=== PATIENT | male | born 1950 | race Native Hawaiian/Other Pacific Islander ===

== ENCOUNTER 2018-09-12 22:55 | Emergency (ER) | payer OTHER ==
[~2018-09-12] VITALS: Ht 180.3 cm; Wt 122.5 kg
[~2018-09-12 22:55] MED LIST: ALAVERT10 M2 PO; ASPIRIN 81 LOW81 MG PO; CARDIZEM60 M1 PO; CLON0.1T16 PO; DIVALPROEX250 M1 PO; DONE5TAB PO; ESCI10TA PO; LACTSYP31 PO; METO50TA27 PO; OLANZAPINE5 M1 PO; PATADAY0.2 % OP; PREP H HC1 % EX; PSYLLIUM PO; RULOX PO; TAMS0.4C PO; TEMA15CA19 PO; XARELTO10 MG PO; [UNRECOGNIZED DRUG - CODE] OPTH
[2018-09-12 23:33] LABS: PLATELET COUNT 194 K/uL (142-355)
[2018-09-12 23:44] LABS: POTASSIUM 3.9 mmol/L (3.6-5.2)
[2018-09-13 00:18] VITALS: BP 141/92; TEMP 98.3
[2018-09-13] MEDS ORDERED: BUSPIRONE10 MG PO (01:03)
[2018-09-13] MEDS ORDERED: DONE5TAB PO (01:04)
[2018-09-13] MEDS ORDERED: ELIQUIS5 MG PO (01:06)
[2018-09-13] MEDS ORDERED: ESCITALOPRAM5 MG PO (01:06)
[2018-09-13] MEDS ORDERED: FLUTICASON50 MCG/ACT NAS (01:07)
[2018-09-13] MEDS ORDERED: MEMANTINE HCL10 MG PO (01:08)
[2018-09-13] MEDS ORDERED: OLANZAPINE10 M2 PO (01:10)
[2018-09-13] MEDS ORDERED: TRAZODONE HYDR100 MG PO (01:11)
[2018-09-13] MEDS ORDERED: [UNRECOGNIZED DRUG - OTHER] PO (01:12)
[2018-09-13] MEDS ORDERED: PANTOPRAZOLE 40MG TA PO (01:12)
== END 2018-09-13 00:35 | disposition other institution (70) ==
LOC: ED 22:55
PROVIDERS: Emergency Medicine
DX: F28 Other psychotic disorder not due to a substance or known physiological condition (principal); I48.91 Unspecified atrial fibrillation; Z04.6 Encounter for general psychiatric examination, requested by authority
CPT/HCPCS: 36415; 80053; 85027; 93005; 99285

== ENCOUNTER 2019-01-25 18:33 | Emergency (ER) | payer OTHER ==
[~2019-01-25] VITALS: Ht 185.4 cm; Wt 122.5 kg
[~2019-01-25 18:33] MED LIST changes: +BUSPIRONE10 MG PO; +BUSPIRONE15 MG PO; +ELIQUIS5 MG PO; +ESCITALOPRAM5 MG PO; +FLUTICASON50 MCG/ACT NAS; +FURO40TA93 PO; +MEMANTINE HCL10 MG PO; +OLANZAPINE10 M2 PO; +PANTOPRAZOLE 40MG TA PO; +TRAZODONE HYDR100 MG PO; +[UNRECOGNIZED DRUG - OTHER] PO
[2019-01-25 18:43] VITALS: TEMP 97.3
[2019-01-25 18:58] LABS: POTASSIUM 3.9 mmol/L (3.6-5.2)
[2019-01-25 19:06] LABS: PLATELET COUNT 174 K/uL (142-355)
[2019-01-25 23:30] VITALS: BP 119/74
== END 2019-01-25 23:30 | disposition other institution (70) ==
LOC: ED 18:33
PROVIDERS: Emergency Medicine
DX: F20.89 Other schizophrenia (principal); S72.092A Other fracture of head and neck of left femur, initial encounter for closed fracture; T84.021A Dislocation of internal left hip prosthesis, initial encounter; I48.91 Unspecified atrial fibrillation; I45.81 Long QT syndrome; W18.39XA Other fall on same level, initial encounter; Y92.89 Other specified places as the place of occurrence of the external cause
CPT/HCPCS: 80053; 85027; 93005; 96374; 99285; J2270